=== PATIENT | male | born 1955 | race Caucasian/White ===

== ENCOUNTER 2023-02-13 06:30 | Day surgery (SDC) | payer MEDICARE ==
[2023-02-08 16:17] LABS: Hematocrit 39.8 % (39.6-49.0); Lymphocytes % 33.5 % (15.3-44.8); MCV 102.7 fL (80-100); MPV 9.7 fL (7.6-11.3); Platelets 183 thou/uL (152-406); RBC Red Blood Cell Count 3.87 M/uL (4.33-5.43)
[2023-02-08 16:35] LABS: Potassium 4.4 mEq/L (3.5-5.1)
--- NOTE | 2023-02-11 17:13 | EKG ---
Test Date: 2023-02-08 Test Time: 15:25:32 [employer] Maker: LEONIDES MEASUREMENT RESULTS: Intervals: Rate: 54 NM: 216 QRSD: 74 QT: 404 QTc: 383 [place]: P: 30 NM: 216 QRS: -15 T: 58 INTERPRETIVE STATEMENTS: Sinus bradycardia with 1st degree AV block Otherwise normal ECG Compared to ECG 07/21/2018 15:53:08 No significant changes Electronically Signed On 02-11-23 17:07:19 CDT by Ham Vo
[2023-02-13] MEDS ORDERED: CEFAZOLIN SODIUM 1 GM/VIAL ONE (07:01)
[2023-02-13] MEDS ORDERED: Ringers Lactate 1,000 ML IV ONE (07:01)
[2023-02-13] MEDS ORDERED: propofoL 200 MG/20 ML VIAL IV ONE (07:07)
[2023-02-13] MEDS ORDERED: LIDOCAINE 2% MPF 5 ML VIAL ONE (07:07)
[2023-02-13] MEDS ORDERED: SUCCINYLCHOLINE 20 MG/ML (10 ML) IV ONE (07:38)
[2023-02-13] MEDS ORDERED: FENTANYL CITR 100 MCG/2 ML ONE (07:41)
[2023-02-13] MEDS ORDERED: MIDAZOLAM HCL 2 MG/2 ML INJ ONE (07:41)
[2023-02-13] MEDS ORDERED: NS 0.9% VIAL 10 ML ONE (08:05)
[2023-02-13] MEDS ORDERED: dexAMETHasone 10 MG/ML VIAL ONE (08:26)
[2023-02-13] MEDS ORDERED: ONDANSETRON 4 MG/2 ML VIAL ONE (08:26)
[2023-02-13] MEDS ORDERED: KETOROLAC 30 MG/ML INJ ONE (08:26)
--- NOTE | 2023-02-13 08:43 | P.BOP ---
Preoperative diagnosis: tender reducible left inguinal hernia Postoperative diagnosis: same Primary procedure: open repair of tender reducible left inguinal hernia with mesh Utility Service Worker: GERSON ARCOS (EXECUTIVE TEAM LEADER) Estimated blood loss: <10cc Specimen: lipoma of cord Findings: LIH Anesthesia: General Complications: None Implants: medium plug and sheet Transferred to: Recovery Room Condition: Good
[2023-02-13] MEDS ORDERED: TAMSULOSIN 0.4 MG SR CAP PO ONE (08:45)
[2023-02-13] MEDS ORDERED: TAMSULOSIN 0.4 MG SR CAP ONE (09:44)
[2023-02-13] MEDS ORDERED: TRAMADOL 37.5mg/APAP 325mg PER TAB ONE (09:44)
[2023-02-13 10:11] VITALS: BP 132/81; TEMP 97.2; O2SAT 97
== END 2023-02-13 10:00 | disposition home or self-care (01) ==
LOC: OR 06:30
PROVIDERS: ATTEND Surgery
PROC: 0YU60JZ Supplement Left Inguinal Region with Synthetic Substitute, Open Approach (ICD-10-PCS; principal; 2023-02-13 07:30)
DX: K40.90 Unilateral inguinal hernia, without obstruction or gangrene, not specified as recurrent (principal); I10 Essential (primary) hypertension; E03.9 Hypothyroidism, unspecified
CPT/HCPCS: 93005; 85025; 80048; 36415; 88302; 49505; A4216; J2704; J2001; J2250; J3010; J1100; J2405; J7120; J0690